=== PATIENT | female | born 1990 | race Caucasian/White ===

== ENCOUNTER 2016-09-20 17:55 | Inpatient (IN) | payer OTHER ==
[2016-09-20 18:46] LABS: Hematocrit 41 % (35-47); Hemoglobin 13.7 g/dl (12.0-16.0); Mean Corpuscular HGB Conc 33 g/dl (31-36); Mean Corpuscular Hemoglobin 30 pg (27-31); Mean Corpuscular Volume 90 fL (80-97); Mean Platelet Volume 10 um3 (7.4-10.4); Red Blood Count 4.62 10^6/ul (4.0-5.4); Red Cell Distribution Width 14 % (10.5-15); White Blood Count 9.1 10^3/ul (3.5-10.8)
--- NOTE | 2016-09-20 18:53 | ED ---
Constantine Navarrete Anna, donell for Tarun Zarco MD on 09/20/16 at 1807 . Psychiatric Complaint - HPI Summary HPI Summary: Patient is a 25 y/o female [facility] [place] [facility] [place] [place] with gradual onset of worsening depression that began this week. 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 She currently takes medication for her depression, but this has not alleviated her symptoms. She denies previous or current medical problems. - History Of Current Complaint Chief Complaint: EDMentalHealth Time Seen by Provider: 09/20/16 18:00 Hx Obtained From: Patient PMH/Surg Hx/FS Hx/Imm Hx Psychiatric History: Reports: Hx Depression - Family History Known Family History: Positive: Other - depression - Social History Occupation: Student Lives: With Family Alcohol Use: Weekly - 1-2/week Hx Substance Use: No Substance Use Type: Reports: None Hx Tobacco Use: No Smoking Status (MU): Never Smoked Tobacco Review of Systems Constitutional: Negative Positive: Depressed All Other Systems Reviewed And Are Negative: Yes Physical Exam Triage Information Reviewed: Yes Vital Signs Reviewed: Yes Appearance: Positive: Well-Appearing, No Pain Distress Skin: Positive: Warm, Skin Color Reflects Adequate Perfusion, Dry Head/Face: Positive: Normal Head/Face Inspection Eyes: Positive: EOMI, BECCA ENT: Positive: Normal ENT inspection Neck: Positive: Supple, Nontender Respiratory/Lung Sounds: Positive: Clear to Auscultation, Breath Sounds Present Cardiovascular: Positive: RRR Abdomen Description: Positive: Nontender, Soft Bowel Sounds: Positive: Present Musculoskeletal: Positive: Normal, Strength/ROM Intact Neurological: Positive: Normal, Sensory/Motor Intact, Alert, Oriented to Person Place, Time Psychiatric: Positive: Affect/Mood Appropriate Course/Dx - Course Assessment/Plan: MHE PENDING AT SHIFT CHANGE STABLE - Differential Dx/Clinical Impression Provider Diagnosis: Mental health problem Discharge - Discharge Plan Condition: Stable Disposition: PSYCHIATRIC FACILITY-[facility] [place] The documentation as recorded by the Constantine avilez Anna accurately reflects the service I personally performed and the decisions made by Haroldo hernandez William, MD.
[2016-09-20 19:02] LABS: Urine Bacteria Absent (Absent); Urine Bilirubin Negative (Negative); Urine Glucose Negative (Negative); Urine Nitrite Negative (Negative)
[2016-09-20 19:11] LABS: ALT 12 U/L (7-52); AST 20 U/L (13-39); Albumin 4.7 g/dL (3.2-5.2); Alkaline Phosphatase 47 U/L (34-104); Anion Gap 8 mmol/L (2-11); BUN/Creatinine Ratio 9.6 (8-20); Benzodiazepine Urine Screen None Detected (None Detect); Blood Urea Nitrogen 7 mg/dL (6-24); CO2 Carbon Dioxide 27 mmol/L (22-32); Calcium 9.6 mg/dL (8.6-10.3); Chloride 107 mmol/L (101-111); EGFR African American 124.9 (>60); EGFR Non-African American 97.1 (>60); Globulin 3.1 g/dL (2-4); Glucose 79 mg/dL (70-100); Potassium 3.6 mmol/L (3.5-5.0); Sodium 142 mmol/L (133-145); Total Protein 7.8 g/dL (6.4-8.9)
[2016-09-20 19:23] LABS: Acetaminophen < 15 mcg/mL; Alcohol 82 mg/dL (<10); Salicylate < 2.50 mg/dL (<30)
[2016-09-20 19:33] LABS: TSH (Thyroid Stimulating Horm) 1.17 mcIU/mL (0.34-5.60)
--- NOTE | 2016-09-21 06:41 | ED ---
rebekah Navarrete Timothy, scribed for Miguel Gómez on 09/21/16 at 0505 . Progress - Progress Note Progress Note: Jennifer Khalil is a 25 yo female presenting to [facility] for a mental health evaluation. - Consult/PCP Time Called: 20:00 Course/Dx - Course Course Of Treatment: Jennifer Khalil is a 25 yo female presenting to [facility] for mental health evaluation. She will be signed out to Dr. Anaya pending complete mental health unit evaluation. - Diagnoses Provider Diagnoses: Mental health problem - Provider Notifications Discussed Care Of Patient With: 0700 - Dr. Anaya (emergency med) - Signed out to Dr. Anaya The documentation as recorded by the rebekah avilez Timothy accurately reflects the service I personally performed and the decisions made by Rico hernandez Emmanuel.
--- NOTE | 2016-09-21 12:16 | ED ---
Progress - Progress Note Progress Note: Jennifer Khalil is a 25 yo female presenting to [facility] for a mental health evaluation. - Results/Orders Results/Orders: Pt just admitted to the mental health vein pumper that she took a handful of motrin at 3 or 330 pm yesterday. Her tylenol and asa levels were normal she has no complaints, poison control was just called and agrees she is medically cleared - Consult/PCP Time Called: 20:00 Course/Dx - Course Course Of Treatment: Jennifer Khalil is a 25 yo female presenting to [facility] for mental health evaluation. She will be signed out to Dr. Anaya pending complete mental health unit evaluation. - Diagnoses Provider Diagnoses: Mental health problem - Provider Notifications Discussed Care Of Patient With: 0700 - Dr. Anaya (emergency med) - Signed out to Dr. Anaya
--- NOTE | 2016-09-21 16:31 | PN ---
ED Flex Patient Progress Note Subjective: This is a 25 year-old F who is pending admission to [facility] secondary to drug OD, depression . Pt offers no complaints at this. Objective: Vitals: Most recent vital signs documented below. General NAD, Alert and oriented x3. Heart: S1/S2, rrr Lungs: CTA, BREATHING EASILY INTEG: warm, dry, no signs of self harm AB: +BS, soft NTTP BEAU: FROM w/o pain or restriction NEURO: CN II-XII grossly intact PSYCH: pleasant, calm, cooperative Laboratory: Current laboratory results documented below. Assessment: Drug OD, depression Plan: Pending psychiatric transfer today Vital Signs Temp Pulse Resp BP Pulse Ox 99.7 F 70 16 125/73 100 09/20/16 20:33 09/20/16 20:33 09/20/16 20:33 09/20/16 20:33 09/20/16 20:33 Lab Results - Entire Visit 09/20/16 09/20/16 09/20/16 18:36 18:36 18:36 WBC RBC Hgb Hct MCV MCH MCHC RDW Plt Count MPV Neut % (Auto) Lymph % (Auto) Caroline % (Auto) Eos % (Auto) Baso % (Auto) Absolute Neuts (auto) Absolute Lymphs (auto) Absolute Monos (auto) Absolute Eos (auto) Absolute Basos (auto) Absolute Nucleated RBC Nucleated RBC % Sodium 142 Potassium 3.6 Chloride 107 Carbon Dioxide 27 Anion Gap 8 BUN 7 Creatinine 0.73 Est GFR ( Amer) 124.9 Est GFR (Non-Af Amer) 97.1 BUN/Creatinine Ratio 9.6 Glucose 79 Calcium 9.6 Total Bilirubin 0.50 AST 20 ALT 12 Alkaline Phosphatase 47 Total Protein 7.8 Albumin 4.7 Globulin 3.1 Albumin/Globulin Ratio 1.5 TSH 1.17 Beta HCG, Quant < 0.60 Urine Color Colorless Urine Appearance Clear Urine pH 7.0 Ur Specific [place] 1.002 L Urine Protein Negative Urine Ketones Negative Urine Blood 1+ H Urine Nitrate Negative Urine Bilirubin Negative Urine Urobilinogen Negative Ur Leukocyte Esterase Negative Urine WBC (Auto) Trace(0-5/hpf) Urine RBC (Auto) Trace(0-2/hpf) Ur Squamous Epith Cells Present H Urine Bacteria Absent Urine Glucose Negative Salicylates < 2.50 Urine Opiates Screen None detected Acetaminophen < 15 Ur Barbiturates Screen None detected Ur Phencyclidine Scrn None detected Ur Amphetamines Screen None detected U Benzodiazepines Scrn None detected Urine Cocaine Screen None detected U Cannabinoids Screen None detected Serum Alcohol 82 H 09/20/16 18:36 WBC 9.1 RBC 4.62 Hgb 13.7 Hct 41 MCV 90 MCH 30 MCHC 33 RDW 14 Plt Count 264 MPV 10 Neut % (Auto) 72.7 Lymph % (Auto) 22.2 L Caroline % (Auto) 3.5 Eos % (Auto) 0.5 Baso % (Auto) 1.1 Absolute Neuts (auto) 6.6 Absolute Lymphs (auto) 2.0 Absolute Monos (auto) 0.3 Absolute Eos (auto) 0 Absolute Basos (auto) 0.1 Absolute Nucleated RBC 0.01 Nucleated RBC % 0.1 Sodium Potassium Chloride Carbon Dioxide Anion Gap BUN Creatinine Est GFR ( Amer) Est GFR (Non-Af Amer) BUN/Creatinine Ratio Glucose Calcium Total Bilirubin AST ALT Alkaline Phosphatase Total Protein Albumin Globulin Albumin/Globulin Ratio TSH Beta HCG, Quant Urine Color Urine Appearance Urine pH Ur Specific [place] Urine Protein Urine Ketones Urine Blood Urine Nitrate Urine Bilirubin Urine Urobilinogen Ur Leukocyte Esterase Urine WBC (Auto) Urine RBC (Auto) Ur Squamous Epith Cells Urine Bacteria Urine Glucose Salicylates Urine Opiates Screen Acetaminophen Ur Barbiturates Screen Ur Phencyclidine Scrn Ur Amphetamines Screen U Benzodiazepines Scrn Urine Cocaine Screen U Cannabinoids Screen Serum Alcohol
[2016-09-22] MEDS ORDERED: lamoTRIgine TAB(*) 100 MG PO ONE (08:05)
[2016-09-22] MEDS ORDERED: FLUoxetine CAP* 10 MG PO ONE (08:06)
[2016-09-22 08:19] VITALS: BP 115/74
[2016-09-22] MEDS ORDERED: lamoTRIgine TAB(*) 100 MG PO SCH (09:00)
[2016-09-22] MEDS ORDERED: FLUoxetine CAP* 10 MG PO SCH (09:00)
[2016-09-22] MEDS ORDERED: Nicotine Inhaler* 10 MG AMP INH PRN (13:58)
[2016-09-22] MEDS ORDERED: Al Hydrox/Mg Hydrox/Simet LIQ* 30 ML UDC PO PRN (13:58)
[2016-09-22] MEDS ORDERED: Acetaminophen TAB* 325 MG PO PRN (13:58)
--- NOTE | 2016-09-22 19:09 | ED ---
Progress - Progress Note Progress Note: The patient is a sign out from Dr. Gómez. The patient is in stable condition and will be admitted to [facility] with SI and depression. Involuntary admission paper work was signed for this patient. 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 Her tylenol and asa levels were normal she has no complaints, poison control was just called and agrees she is medically cleared - Consult/PCP Time Called: 20:00 Course/Dx - Diagnoses Provider Diagnoses: Suicidal ideation, Depression
[2016-09-23] MEDS ORDERED: Vitamin THERAPEUTIC TAB PO SCH (09:00)
[2016-09-23] MEDS ORDERED: lamoTRIgine TAB(*) 100 MG PO SCH (09:00)
[2016-09-23] MEDS ORDERED: FLUoxetine CAP* 10 MG PO SCH (09:00)
[2016-09-23] MEDS ORDERED: Influenza VAC *QUAD* 2016-17* 0.5 ML SYRINGE IM ONE (09:00)
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
--- NOTE | 2016-09-24 00:12 | DS ---
DISCHARGE SUMMARY: DATE OF ADMISSION: 09/22/16 DATE OF DISCHARGE: 09/23/16 DISCHARGE DIAGNOSES: Are as follows: [place] I: Bipolar disorder type 2. Alcohol use disorder. [place] II: Deferred. [place] III: None. [place] I V: Severe primary support and academic stressors. [place] V: At the time of admission was 45 and at [facility] time of discharge is 60. CONDITION AT THE TIME OF DISCHARGE: Stable. The patient is steadfastly denying suicidal ideations. Her suicide attempt was low in terms of intentionality and lethality and she is very much future o riented, wanting to get back to school with her friends and wanting to work towards getting caught u p with her studies. It is notable that one of her main stressors leading to this was being placed o n academic probation, although after being visited on the unit by her faculty advisor she has been i nformed that she will be receiving academic accommodations, which will place her in much better [facility] em standing. An additional factor in her safety is the fact that she has very close followup in [facility] with followup appointments with her therapist and psychiatric nurse practitioner within 3 days of discharge. For the weekend she is going to be picked up by a friend named Juanita who has vi sited her on the unit and promises to keep a close watch over her until she has her followup appoint ment with her outpatient therapist. MENTAL STATUS EXAMINATION: The patient is a young petite white female with long blonde hair who is clean and well groomed. She is easy to establish a rapport with, makes good eye contact. Speech shin s normal rate, tone, and volume. Mood is dysthymic with a constricted affect. Thought process is l inear and goal directed. Thought content is significant for her desire to be discharged [facility] the [facility] so that she can be with her friends over the weekend and catch up on some studying. She is den dre suicidal or homicidal ideations. She denies auditory or visual hallucinations. Insight and ju dgment are fair given her willingness to follow up closely in the outpatient setting. Cognitively, she is awake and alert with what would appear to be a high average intellect by virtue of her academ ic achievement. DISCHARGE INSTRUCTIONS TO THE PATIENT: Are as follows: A. Medications: She is taking Lamictal 125 mg p.o. daily. She has taken fluoxetine 10 mg p.o. sarbjit ly. B. Diet: Regular. C. Activity: As tolerated. The patient is a nonsmoker. D. Followup care: She will be following up with psychiatric nurse practitioner, Taylor Sumner, on Monday at 10 a.m. that is September 27. She will follow up with outpatient therapist, Ann logan on September 26 at 9:00 a.m. 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 The patient indicated to me that her depression has been worse since fall following the breakup with her boyfriend of 14 months, which had occurred in April 2016. They had been close enough to be discussing marriage but since the breakup, he is refusing to respond to her voicemails or text messages. An additional stressor is that she was recently placed on academic probation for being behind in her course work. She is not typically a heavy drinker bu t over the past 2 to 3 weeks, she has had several instances of drinking between 5 and 7 alcoholic be verages including during the episode where she took the ibuprofen. She notes that in June, she put a belt around her neck feeling extremely depressed but this was not a suicide attempt but rather an attempt to shock her into feeling better. She complains of guilt, poor energy, poor concentrati on and suicidal ideations; however, she is denying sleep disturbance, anhedonia, appetite disturbanc e or psychomotor problems. She does indicate that her last hypomanic episode was back in November 2014. PART B. Psychiatric treatment rendered: The patient was [facility] the [facility], where she was placed on q.30-minute checks for her own safety. Her parents were unavailable for collateral information given the fact that they live in [facility] but we were able to speak with her f Juanita mckeon who came to the unit to visit her and vouched for her safety and stated that the two wou ld stay together through the weekend until the patient could follow up with her outpatient therapist . In addition, she was visited on the unit by her faculty advisor who previously had been unaware o f her diagnosis of bipolar. The faculty advisor indicated that she would be placed on academic acco mmodations, which would greatly improve her academic stressors. In addition, we decided on an incre ase in her lamotrigine from 100 to 125 mg p.o. daily. The patient was again counseled on the risk o f serious rash and the potential for Wooten-Jarred syndrome. She accepted this information and is agreeable to increasing the dose of this medication. The patient at this point seems to be quite f uture oriented. In fact, she has been denying suicidal ideation since her arrival 2 days ago. We h juan david certainly seen nothing in this 24-hour period of observation that would indicate that she is a t hreat to herself or others. In fact, she is telling us that she would prefer to be with her friends this weekend and to do a little bit of her college course work and then follow up with her therapis t and psychiatrist nurse practitioner early next week. We have confirmed those appointments and the patient is telling us that she feels safe leaving the hospital. At this point, I see no legal just ification to keep her against her will given the low lethality and low intentionality of her parasui cidal gesture. [id number]/[facility] #: [id number]
--- NOTE | 2016-09-26 20:24 | CONS ---
PSYCHOLOGICAL CONSULTATION REPORT: DATE OF CONSULT: 09/23/16 REASON FOR REFERRAL: Kong was referred for psychological testing to assist with diagnostic questions as well as contribute to discussion regarding possible lethality. Kong describes a prior diagnosis of bipolar 2 disorder secondary to mood swings. TESTS ADMINISTERED: Kong completed the [place] Multiphasic Personality Inventory-2 (MMPI-2), and was given feedback in individual conversation regarding test results. 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 She describes a recent breakup with her boyfriend of some 14 months as the primary factor in her difficulties with depressive symptoms in the past few weeks as well as academic pressures and stress. Kong describes being in despair after her estranged boyfriend has refused to respond to her attempts at communication. She expressed concerns about "having to settle" in regards to future relationships, and/or "dying by myself." Kong responded positively to reassurances in regard to her prospects given that she is a bright young and articulate woman who is only 25 years of age. Discussion also addressed how to better manage academic pressures with Kong identifying feeling supported by a professor who dropped off some books for her to read during her time here. She found this to be very helpful in alleviating her concerns regarding recent academic status. Apparently, she was placed on academic probation recently. Kong was future oriented in discussion, asking for immediate discharge, so she could return to her studies. She cites strong social network of support and positive engagement with peers. She also describes good historical family support, although her parents were not able to be attentive secondary to residence in [place]. Kong presented with bright affect that was appropriately variable with conversation and she was earnest in discussion of relevant history and in test result conversation as well. TEST RESULTS: Kong provides a moderately distressed profile on this administration of the MMPI-2. She elevates 2 of the 3 emotional duress scales on validity indicators (F=74, FB=77). Discussion addressed how persons who elevate these scales are reacting to external stressors as well as internal duress. Persons who elevate the Fb scale have indicated feelings; pessimistic about the prospects and relationships. She elevates the depression scale in a similar fashion as well as the conversion hysteria and psychopathic deviate scales (T=85). She has lesser elevations on the psychoticism scales with T scores moving between 67 and 75 with her high point reflecting difficulties with anxiety and a general sense of malaise. Of interest also is her moderate scoring on the hypomania scale where she has subclinical results (T=47). Her scores here would appear to contraindicate concerns regarding bipolar condition and instead the overall impression would support borderline characterological vulnerabilities. Kong describes having frequent mood swings that are rather quickly resolved and do not persist for days or weeks. IMPRESSION AND RECOMMENDATIONS: Kong impresses as experiencing low lethality presently. This assertion is based on her pleasant affect and future orientation as well as sense of regret regarding having ingested somewhere between 10 and 15 ibuprofen pills. Her attempt impresses as low lethality and she is very interested in conversation and in meeting people. She also expresses positive support through friendships and faculty relationships. Diagnostic impression supports adjustment disorder with depressed mood with characterological vulnerabilities regarding borderline personality features on [place] II. Stressors are severe in loss of social support through breakup with boyfriend as well as academic pressures. [id number]/[facility] [place] #: [id number] BASILIO
== END 2016-09-23 19:24 | disposition home or self-care (01) | DRG 885 ==
LOC: ED 17:55 → BSU 09-22 14:18
PROVIDERS: ADMIT Psychiatry & Neurology Psychiatry; ATTEND Psychiatry & Neurology Psychiatry
DX: F31.81 Bipolar II disorder (principal); T39.312A Poisoning by propionic acid derivatives, intentional self-harm, initial encounter; Y92.9 Unspecified place or not applicable; Z72.89 Other problems related to lifestyle; Z91.5 Personal history of self-harm; Z23 Encounter for immunization
CPT/HCPCS: 36415; 80053; 80307; 80320; 80329; 81003; 81015; 84443; 84702; 85025; 90686; 93005; 99222; 99238; A9270-GY; G0480